=== PATIENT | female | born 2000 | race Two or more races ===

== ENCOUNTER 2022-11-23 15:54 | Emergency (ER) | payer MEDICAID ==
[~2022-11-23] VITALS: Ht 157.5 cm; Wt 81.6 kg
[2022-11-23 17:03] LABS: Eosinophils # (auto) 0.1 10 ^3/uL (0-0.8); Monocytes # (auto) 0.8 10 ^3/uL (0-1.3); Nucleated Red Blood Cells % 0.1 %
[2022-11-23 17:06] LABS: Basophils # (auto) 0 10 ^3/uL (0-0.2); Basophils % (auto) 0.4 % (0.0-2.0); Eosinophils % (auto) 0.8 % (0.0-7.0); Lymphocytes # (auto) 2.2 10 ^3/uL (0.4-5.4); Mean Corpuscular Hemoglobin 25.4 pg (28.0-32.0); Mean Corpuscular Hgb Conc. 32.4 g/dL (32.0-36.0); Mean Corpuscular Volume 78.4 fL (80.0-100.0); Neutrophils # (auto) 6.9 10 ^3/uL (1.6-8.6); Neutrophils % (auto) 68.8 % (37.0-80.0); Red Blood Cells 4.72 10^6/uL (4.0-5.20); Red Cell Distribution Width 15.5 % (11.8-14.3); White Blood Cell 10.1 10^3/uL (4.4-10.8)
[2022-11-23 17:26] LABS: Urine Bacteria NONE SEEN /hpf (None Seen); Urine Blood 3+ /uL (Negative); Urine Mucus FEW (None Seen); Urine Specific Gravity 1.023 (1.001-1.035); Urine WBC 2 /hpf (0 - 5)
[2022-11-23 18:55] VITALS: BP 111/77
== END 2022-11-23 18:57 | disposition home or self-care (01) ==
LOC: ER 15:54
DX: N93.8 Other specified abnormal uterine and vaginal bleeding (principal)
CPT/HCPCS: 36415; 81001; 84702; 85025

== ENCOUNTER 2023-07-16 23:57 | Emergency (ER) | payer MEDICAID ==
[~2023-07-16] VITALS: Ht 152.4 cm; Wt 78.3 kg
[2023-07-17 01:20] VITALS: BP 133/92; PULSE 103; RESP 16; TEMP 98.1; O2SAT 98
[2023-07-17 01:27] LABS: Urine Bacteria FEW /hpf (None Seen); Urine Blood Negative /uL (Negative); Urine Clarity Clear (Clear); Urine Color Colorless (Yellow); Urine Protein, UAD Negative (Negative); Urine Specific Gravity 1.008 (1.001-1.035); Urine Urobilinogen Normal (Negative); Urine WBC 13 /hpf (0 - 5)
[2023-07-17] MEDS ORDERED: FLUC150T47 PO (02:47)
[2023-07-17] MEDS ORDERED: ACYC400T16 PO (02:47)
[2023-07-18 07:06] LABS: RPR Non Reactive (Non Reactive)
[2023-07-19 10:06] LABS: Chlamydia Trachomatis, NAA Negative (Negative); Neisseria gonorrhoeae, NAA Negative (Negative)
== END 2023-07-17 02:55 | disposition home or self-care (01) ==
LOC: ER 07-17 00:08
DX: B00.9 Herpesviral infection, unspecified (principal); B37.31 Acute candidiasis of vulva and vagina
CPT/HCPCS: 81001; 86592; 86703